=== PATIENT | male | born 1960 | race Two or more races ===

== ENCOUNTER 2022-08-14 07:55 | Day surgery (SDC) | payer OTHER ==
[~2022-08-14 07:55] MED LIST: Acetaminophen 1,000 MG in Premix Bag 1 BAG IV SCH; Lactated Ringers 1,000 ML IV SCH; Pregabalin 75 MG Cap PO SCH; cefOXitin 2 GM in Sodium Chloride 0.9% 50 ML IV SCH
[2022-08-14] MEDS ORDERED: Albuterol 0.083% 2.5 MG/3 ML Neb Soln NEB PRN (08:11)
[2022-08-14] MEDS ORDERED: Ondansetron 4 MG/2 ML SDV IVPUSH PRN (08:11)
[2022-08-14] MEDS ORDERED: HYDROmorphone 1 MG/ML Syringe IVPUSH PRN (08:11)
[2022-08-14] MEDS ORDERED: fentaNYL 50 MCG/ML SDV IVPUSH PRN (08:11)
[2022-08-14] MEDS ORDERED: Metoclopramide 10 MG/2 ML SDV IVPUSH PRN (08:11)
[2022-08-14] MEDS ORDERED: Morphine 2 MG/ML SYRINGE IVPUSH PRN (08:11)
[2022-08-14] MEDS ORDERED: Naloxone 0.4 MG/ML SDV IVPUSH PRN (08:11)
[2022-08-14] MEDS ORDERED: droPERidol 5 MG/2 ML SDV IVPUSH PRN (08:11)
[2022-08-14] MEDS ORDERED: Ropivacaine 0.5% 5 MG/ML 30 ML SDV ONE (08:48)
[2022-08-14] MEDS ORDERED: Famotidine 20 MG/2 ML SDV ONE (08:48)
[2022-08-14] MEDS ORDERED: fentaNYL 100 MCG/2 ML SDV ONE ×3 (08:54→10:04)
[2022-08-14] MEDS ORDERED: Morphine 10 MG/ML SDV ONE (08:54)
[2022-08-14] MEDS ORDERED: Ketamine 500 mg/10 ML MDV ONE (08:54)
[2022-08-14] MEDS ORDERED: Propofol 200 MG/20 ML SDV ONE (08:54)
[2022-08-14] MEDS ORDERED: Bupivacaine 0.25% 30 ML SDV ONE (09:07)
[2022-08-14] MEDS ORDERED: ceFAZolin 2 GM Vial ONE (09:34)
== END 2022-08-14 14:30 | disposition home or self-care (01) ==
LOC: MW.SDS 07:55
PROVIDERS: ATTEND Surgery
DX: K80.10 Calculus of gallbladder with chronic cholecystitis without obstruction (principal); K82.8 Other specified diseases of gallbladder; K82.1 Hydrops of gallbladder; K21.9 Gastro-esophageal reflux disease without esophagitis; Z88.0 Allergy status to penicillin; Z90.89 Acquired absence of other organs; Z86.010 Personal history of colon polyps; Z79.899 Other long term (current) drug therapy
CPT/HCPCS: 47562; 64488; A9270; J0690; J2270; J2405; J2704; J2795; J3010; J3490; J7120; 00790